=== PATIENT | male | born 2000 | race Caucasian/White ===

== ENCOUNTER 2021-12-15 11:16 | Emergency (ER) | payer BC, SELFPAY ==
[2021-12-15 11:20] VITALS: BP 141/85; PULSE 58; RESP 16; TEMP 37.1; O2SAT 99
--- NOTE | 2021-12-15 12:11 | W.ED.GENADLT ---
HPI - General Adult General: Chief complaint: Abdominal Pain Stated complaint: left back/side pain Time Seen by Provider: 12/15/21 11:51 History of Present Illness: Patient is a 21-year-old male with history of renal colic presenting to the emergency room cute onset of left-sided flank pain with nausea and vomiting earlier today. Patient tells me that he woke up this morning with left-sided flank pain. Patient has had symptoms of dysuria and is that his urine looks a little bit red. Patient denies any fever or chills. Patient has had 1 episode of emesis with p.o. intake. Patient's has been able to hold things down. Patient denies any other prior abdominal surgery. Denies fever/chill, chest pain, shortness of breath, abdominal pain, diarrhea/melena/hematochezia. Patient reports pain currently 6 out of 10. Onset: 4 hrs ago Duration:4 hrs Location:home Severity:mild/moderate Associated symptoms: Deny chest pain, dyspnea, nausea, rash, palpitations or vomiting Review of Systems Const: Denies: fever(s) or chills Eyes: Denies: change in vision ENMT: Denies: mouth pain Card: Denies: chest pain or palpitations Resp: Denies: dyspnea or non-productive cough GI: Denies: abdominal pain, nausea, vomiting or diarrhea : Reports: flank pain (+L sided flank and back pain), dysuria and other (+red urine) Musc: Denies: extremity pain Skin/Breast: Denies: rash or new lesions Neuro: Denies: weakness in extremities Psych: Reports: other (Normal mood) Igor/Lymph: Denies: easy bruising PFS ED PFSH: Medical History Renal colic Social History Smoking and tobacco status: never smoked Alcohol intake: never Substance/Drug Use: never Physical Exam Const: COMMON NORMALS: alert HENMT: COMMON NORMALS: atraumatic HEAD & SCALP: atraumatic MOUTH: moist mucous membranes not abnormal Eye: COMMON NORMALS: EOMs intact bilaterally and conjunctivae normal CONJUNCTIVA: Yes conjunctivae normal Neck/C-Spine: COMMON NORMALS: full ROM and supple Resp: COMMON NORMALS: normal respiratory effort and clear to auscultation bilaterally AUSCULTATION: clear to auscultation bilaterally Cardio: COMMON NORMALS: regular rate RATE: regular rate GI: COMMON NORMALS: Soft to palpation PALPATION: Yes Soft to palpation OTHER: +L flank TTP/L CVA ttp. NO guarding rebound, guarding, rigidity. Neg Arnold/Neg McBurney's point tenderness, no suprabupic tenderness to palpation. Extremity: COMMON NORMALS: full ROM Neuro: SENSORIUM/ORIENTATION: Yes alert MOTOR EXAM: No Abnormal motor strength present and Other motor observations present (no focal motor deficits) Psych: COMMON NORMALS: speech normal SPEECH: Yes normal speech MOOD & AFFECT: Yes euthymic mood Course Vital Signs: Vital signs: Vital Signs Temperature 98.7 F 12/15/21 11:20 Pulse Rate 58 L 12/15/21 11:20 Respiratory Rate 16 12/15/21 11:20 Blood Pressure 141/85 12/15/21 11:20 Pulse Oximetry 99 12/15/21 11:20 [facility] - General Adult Medical Decision Making 21-year-old male with a history of renal colic presenting to the emergency room with left-sided flank pain and back pain. On exam, patient has left-sided flank and left CVA tenderness to palpation. No guarding or rebound tenderness. White count 15.9 today. Patient has been able to tolerate p.o. in the emergency without any without difficulty. Creatinine 1.0. UA is not consistent with UTI. UA showed lab work consistent with renal colic. Patient received 2 L of fluid and pain meidcine with improvement in pain. Patient reported pain significantly improved form 10/10 to a 3/10. I have given patient follow up with our continuous pillowcase cutter to be seen by our outpatient Urology for renal colic second time. Patient aware of a call from our continuous pillowcase cutter to schedule for appointment(s) and verbalizes understanding of the importance of following up. Rx: Tylenol PRN pain Disposition: Discharge. Patient counseled regarding diagnostic impression, treatment plan. Patient given ED strict return precautions to return for continuation, worsening, or development of new symptoms. Instructed to f/u w/ PCP regarding symptoms today. Patient verbalized understanding. Patient is given strict return precaution for infected kidney stone. Lab Data : 12/15/21 12:15 12/15/21 12:15 Laboratory Results WBC 15.9 10^3/uL (4.0-10.0) H 12/15/21 12:15 RBC 5.57 10^6/uL (4.1-5.3) H 12/15/21 12:15 Hgb 15.3 g/dL (11.7-16.6) 12/15/21 12:15 Hct 45.2 % (42.0-52.0) 12/15/21 12:15 MCV 81.1 fl (80-94) 12/15/21 12:15 MCH 27.5 pg (28.0-34.0) L 12/15/21 12:15 MCHC 33.8 g/dL (30.0-36.0) 12/15/21 12:15 RDW 11.9 % (12.1-15.1) L 12/15/21 12:15 Plt Count 333 10^3/cmm (130-400) 12/15/21 12:15 MPV 10.7 fL (7.4-10.4) H 12/15/21 12:15 Neut % (Auto) 87.9 % 12/15/21 12:15 Lymph % (Auto) 5.5 % 12/15/21 12:15 [place] % (Auto) 5.2 % 12/15/21 12:15 Eos % (Auto) 0.4 % 12/15/21 12:15 Baso % (Auto) 0.4 % 12/15/21 12:15 Neut # (Auto) 13.92 10^3/uL (1.8-7.7) H 12/15/21 12:15 Lymph # (Auto) 0.9 10^3/uL (0.8-4.8) 12/15/21 12:15 [place] # (Auto) 0.8 10^3/uL (0.2-0.9) 12/15/21 12:15 Eos # (Auto) 0.1 10^3/uL (0.0-0.8) 12/15/21 12:15 Baso # (Auto) 0.1 10^3/uL (0.0-0.1) 12/15/21 12:15 Nucleated RBC % (auto) 0 % 12/15/21 12:15 Nucleated RBCs # 0.0 /100WBC 12/15/21 12:15 Sodium 140 mmol/L (136-145) 12/15/21 12:15 Potassium 4.1 mmol/L (3.5-5.1) 12/15/21 12:15 Chloride 104 mmol/L (98-107) 12/15/21 12:15 Carbon Dioxide 25 mmol/L (22-29) 12/15/21 12:15 Anion Gap 15.1 (5-19) 12/15/21 12:15 BUN 10 mg/dL (6-20) 12/15/21 12:15 Creatinine 1.0 mg/dL (0.7-1.2) 12/15/21 12:15 GFR Calculation 92.6 mL/min (90-130) 12/15/21 12:15 Glucose 100 mg/dL (65-115) 12/15/21 12:15 Calculated Osmolality 289 mOsm/kg (285-295) 12/15/21 12:15 Calcium 8.9 mg/dL (8.5-10.5) 12/15/21 12:15 Total Bilirubin 0.4 mg/dL (0.15-1.2) 12/15/21 12:15 AST 17 U/L (0-40) 12/15/21 12:15 ALT 13 U/L (0-41) 12/15/21 12:15 Alkaline Phosphatase 63 IU/L (40-130) 12/15/21 12:15 Total Protein 7.9 g/dL (6.6-8.7) 12/15/21 12:15 Albumin 5.0 g/dL (3.5-5.2) 12/15/21 12:15 Globulin 2.9 g/dL (1.3-4.6) 12/15/21 12:15 Lipase 25 U/L (13-60) 12/15/21 12:15 Urine Color [place] (Yellow) 12/15/21 12:15 Urine Appearance Cloudy (CLEAR) 12/15/21 12:15 Urine pH 9 (5-7) H 12/15/21 12:15 Ur Specific [place] 1.010 (1.005-1.030) 12/15/21 12:15 Urine Protein 1+ (Negative) H 12/15/21 12:15 Urine Glucose (UA) Norm (Normal) 12/15/21 12:15 Urine Ketones Negative (Negative) 12/15/21 12:15 Urine Blood 3+ (Negative) H 12/15/21 12:15 Urine Nitrate Not tested (Negative) A 12/15/21 12:15 Urine Bilirubin 1+ (Negative) H 12/15/21 12:15 Prot Sulfosalicylic Acd Negative (Negative) 12/15/21 12:15 Urine Urobilinogen 1 mg/dL (Negative) H 12/15/21 12:15 Ur Leukocyte Esterase Negative (Negative) 12/15/21 12:15 Urine RBC 50-80 /hpf (0-2) H 12/15/21 12:15 Urine WBC 0-4 /hpf (0-5) H 12/15/21 12:15 Ur Squamous Epith Cells 0-4 /hpf (0-5) H 12/15/21 12:15 Amorphous Sediment 2+ /hpf 12/15/21 12:15 Urine Bacteria 1+ /hpf (NONE) H 12/15/21 12:15 Urine Mucus Trace /hpf 12/15/21 12:15 Discharge Plan Discharge Patient Disposition: Home Clinical Impression: Renal colic, Flank pain Condition: Stable Prescriptions: New acetaminophen 500 mg tablet 500 mg PO Q6H PRN (Reason: pain) 5 Days Qty: 20 0RF Discharge Orders: Discharge ED (Routine); Ordered 12/15/21 Ordered By: Azul Rodrigez Discharge Diet: Advance as tolerated Discharge Activity: Increase activity as tolerated Patient Instructions: Abdominal Pain (ED) Activity Restrictions/Additional Instructions: Please come back to the emergency room if any worsening pain, fever or chills, nausea or vomiting, or any new concerning complaints. Our continuous pillowcase cutter will have you follow-up with Dr. Moe in the next few days. You would be expected to have a phone call with our continuous pillowcase cutter who will put you on the schedule. You can expect a call from us in the next 2-3 days. If you don't hear from us, call us back in the emergency room at [phone]. Stand Alone Forms: Work/School Release Coding Level of Care Code ED Biller for Jennifer Fwd Exam Comprehensive
[2021-12-15] MEDS: ketorolac 30 mg/mL INJ IVP (12:20)
[2021-12-15] MEDS: sodium chloride 0.9% 1,000 ML 999 ML IV ×2 (12:20→13:51)
[2021-12-15 12:24] VITALS: BP 131/87; PULSE 52; RESP 15; O2SAT 100
[2021-12-15 12:28] LABS: Basophils # 0.1 10^3/uL (0.0-0.1); Basophils % 0.4 %; Eosinophils # 0.1 10^3/uL (0.0-0.8); Eosinophils % 0.4 %; Hematocrit 45.2 % (42.0-52.0); Hemoglobin 15.3 g/dL (11.7-16.6); Lymphocytes # 0.9 10^3/uL (0.8-4.8); Lymphocytes % 5.5 %; Mean Corpuscular HGB Conc 33.8 g/dL (30.0-36.0); Mean Corpuscular Hemoglobin 27.5 pg (28.0-34.0); Mean Corpuscular Volume 81.1 fl (80-94); Mean Platelet Volume 10.7 fL (7.4-10.4); Monocytes # 0.8 10^3/uL (0.2-0.9); Monocytes % 5.2 %; Neutrophils # 13.92 10^3/uL (1.8-7.7); Neutrophils % 87.9 %; Nucleated Red Blood Cells % 0 %; Platelet Count 333 10^3/cmm (130-400); Red Blood Count 5.57 10^6/uL (4.1-5.3); Red Cell Distribution Width 11.9 % (12.1-15.1); White Blood Count 15.9 10^3/uL (4.0-10.0)
[2021-12-15 12:45] LABS: Alanine Aminotransferase 13 U/L (0-41); Alkaline Phosphatase 63 IU/L (40-130); Anion Gap 15.1 (5-19); Aspartate Amino Transferase 17 U/L (0-40); Blood Urea Nitrogen 10 mg/dL (6-20); Calcium 8.9 mg/dL (8.5-10.5); Carbon Dioxide 25 mmol/L (22-29); Chloride 104 mmol/L (98-107); Globulin 2.9 g/dL (1.3-4.6); Glomerular Filtration Rate 92.6 mL/min (90-130); Glucose 100 mg/dL (65-115); Lipase 25 U/L (13-60); Osmolality Calculated 289 mOsm/kg (285-295); Potassium 4.1 mmol/L (3.5-5.1); Sodium 140 mmol/L (136-145); Total Bilirubin 0.4 mg/dL (0.15-1.2); Total Protein 7.9 g/dL (6.6-8.7)
[2021-12-15 13:15] LABS: Urine Appearance Cloudy (CLEAR); Urine Color Orange (Yellow)
[2021-12-15 13:16] LABS: Add Urine Microscopic? YES; Bacteria Urine 1+ /hpf; Bilirubin Urine 1+ (Negative); Blood Urine 3+ (Negative); Glucose Urine UA Norm (Normal); Ketones Urine Negative (Negative); Leukocyte Esterase Urine Negative (Negative); Mucus Urine TRACE /hpf; Nitrate Urine Not Tested (Negative); Protein Urine 1+ (Negative); RBC Urine 50-80 /hpf (0-2); Squamous Epithelial Cell Urine 0-4 /hpf (0-5); Sulfosalicylic Acid Urine Negative (Negative); Urobilinogen Urine 1 mg/dL (Negative); WBC Urine 0-4 /hpf (0-5); pH Urine 9 (5-7)
[2021-12-15 13:17] LABS: Add Urine Culture? Yes; Amorphous Sediment Urine 2+ /hpf
[2021-12-15 14:24] VITALS: BP 126/81; PULSE 58; RESP 14; O2SAT 100
[2021-12-15 15:24] VITALS: BP 130/86; PULSE 63; RESP 14; O2SAT 100
--- NOTE | 2021-12-18 11:37 | DCPLANNER ---
Addendum entered by Kaylah Lutz 12/31/21 16:16: storage garage manager was sent the following message regarding follow up appointment: Unable to reach pt. to confirm if pt. wants an appt. Will wait for pt. to call. On Adeline 7:38a Dec 20, 2021 Delfina Aburto (Covering For: Urology Front Office) Wrote To: Kaylah Lutz PT. PASSED STONE NOT SURE IF HE WANTS AN APPT. -PT WILL CALL BACK. Original Note: storage garage manager had message to schedule a follow up appointment for patient with urology. storage garage manager sent patients information to the front office staff at urology. Patients information will be printed and reviewed. Clinic will call patient with appointment information.
== END 2021-12-15 15:50 | disposition home or self-care (01) ==
PROVIDERS: Emergency Provider Emergency Medicine
DX: N23 Unspecified renal colic (principal)
CPT/HCPCS: 80053; 81001; 83690; 85025; 87086; 96361; 96374; 99284; J1885; J7030